=== PATIENT | female | born 1990 | race Caucasian/White ===

== ENCOUNTER → 2021-12-08 | Outpatient (CLI) | payer OTHER | LOC: LAB 13:11 → LAB SHORT 13:11 | PROVIDERS: Registered Nurse Community Health | DX: Z30.431 Encounter for routine checking of intrauterine contraceptive device (principal) | CPT/HCPCS: G0123 ==

== ENCOUNTER 2023-05-06 21:28 | Emergency (ER) | payer OTHER ==
[~2023-05-06] VITALS: Ht 172.7 cm; Wt 99.8 kg
[2023-05-06 21:31] VITALS: BP 118/89
[2023-05-06] MEDS ORDERED: LOMAIRA8 MG PO (21:37)
[2023-05-06] MEDS ORDERED: ZOLOFT10013 PO (21:37)
[2023-05-06] MEDS ORDERED: PRAZ1 (21:37)
== END 2023-05-06 21:43 | disposition home or self-care (01) ==
LOC: ER 21:28
DX: R10.2 Pelvic and perineal pain (principal); W50.0XXA Accidental hit or strike by another person, initial encounter; Y99.0 Civilian activity done for income or pay
CPT/HCPCS: 99283

== ENCOUNTER → 2024-09-07 | Outpatient (CLI) | payer OTHER ==
[~2024-09-07] MED LIST: LOMAIRA8 MG PO; PRAZ1; ZOLOFT10013 PO
[2024-09-08 07:39] LABS: Bacterial Vaginosis PCR Negative (NEGATIVE); Candida Group, PCR NOT DETECTED (NOT DETECT); Candida glabrata-krusei, PCR NOT DETECTED (NOT DETECT)
[2024-09-11 09:15] LABS: HEPATITIS B SURFACE ANTIBODY 61.48 IU/L
[2024-09-11 14:53] LABS: HIV 1,2 COMBO ANTIGEN/ANTIBODY Negative (Negative)
[2024-09-11 16:28] LABS: HEPATITIS C AB CIA INTERP Negative (Negative); HEPATITIS C ANTIBODY CIA INDEX 0.06 IV
== END ==
LOC: LAB 16:49 → LAB SHORT 16:49
PROVIDERS: General Practice
DX: Z11.3 Encounter for screening for infections with a predominantly sexual mode of transmission (principal); N89.8 Other specified noninflammatory disorders of vagina
CPT/HCPCS: 81515; 86592; 86803; 87389